=== PATIENT | female | born 1985 | race African-American/Black ===

== ENCOUNTER 2017-07-05 19:07 | Emergency (ER) | payer BC, OTHER ==
--- NOTE | 2017-07-05 20:15 | RAD ---
LEFT FOREARM TWO VIEWS 07/05/17 HISTORY: Fall. Left arm injury. FINDINGS: Radius and ulna are intact. No acute fracture or dislocation are apparent. Ulnar negative variance is noted. IMPRESSION: No acute osseous abnormalities are demonstrated. POS: ANGELITA
--- NOTE | 2017-07-05 20:19 | RAD ---
LUMBAR SPINE THREE VIEWS 07/05/17 HISTORY: Fall. Back injury. FINDINGS: There are five lumbar type vertebrae. Pedicles are intact. Vertebral body heights and alignment are m aintained. No acute fracture or dislocation. IMPRESSION: No acute osseous abnormalities are demonstrated. POS: ALVARO
== END 2017-07-05 21:10 | disposition home or self-care (01) ==
LOC: SCSER 19:07
DX: M54.5 Low back pain (principal); M79.632 Pain in left forearm; F17.210 Nicotine dependence, cigarettes, uncomplicated; Z79.899 Other long term (current) drug therapy; W18.30XA Fall on same level, unspecified, initial encounter; Y92.512 Supermarket, store or market as the place of occurrence of the external cause
CPT/HCPCS: 72100; 99406

== ENCOUNTER 2017-07-06 11:16 | Emergency (ER) | payer MEDICAID, OTHER ==
[2017-07-06 11:48] LABS: Bilirubin Small (Negative); Blood, Urine Large (Negative); Clarity Cloudy (Clear); Glucose, Urine (Dipstick) Negative (Negative); Leukocyte Moderate (Negative); Nitrite Negative (Negative); Protein, Urine (Dipstick) 100 mg/dL (Neg-Trace)
[2017-07-06 11:50] LABS: Specific Gravity, Urine 1.023 (1.002-1.036)
[2017-07-06 12:03] LABS: Bacteria/HPF 2+ HPF (None Seen); Trichomonas/HPF Rare HPF (None Seen)
== END 2017-07-06 12:18 | disposition home or self-care (01) ==
LOC: SCSER 11:16
DX: A59.9 Trichomoniasis, unspecified (principal); N39.0 Urinary tract infection, site not specified; F17.210 Nicotine dependence, cigarettes, uncomplicated
CPT/HCPCS: 81003; 81015; 99406

== ENCOUNTER 2017-10-16 18:57 | Emergency (ER) | payer MEDICAID, OTHER ==
[2017-10-16 19:27] LABS: #Basophils 0.1 thou/uL (0.0-0.2); #Lymphocytes 2.8 thou/uL (1.20-3.40); #Monocytes 0.6 thou/uL (0.11-0.59); #Neutrophils 4.8 thou/uL (1.40-6.50); %Basophils 0.8 % (0.0-1.0); %Eosinophils 0.5 % (0.0-10.0); %Lymphocytes 33.6 % (21.0-51.0); %Monocytes 7.6 % (0.0-10.0); %Neutrophils 57.5 % (42.0-75.0); Hemoglobin 15.9 g/dL (12.0-16.0); Mean Corpuscular HGB CONC 36.3 g/dL (32.0-36.0); Mean Platelet Volume 7.1 fL (7.4-10.4); Platelet Count 268 thou/uL (130-400); RBC Distribution Width 11.3 % (11.5-14.5); Red Blood Cell (RBC) Count 4.99 mill/uL (4.20-5.40); White Blood Cell (WBC) Count 8.4 thou/uL (4.8-10.8)
[2017-10-16 19:32] LABS: Bilirubin Small (Negative); Blood, Urine Moderate (Negative); Glucose, Urine (Dipstick) Negative (Negative); Leukocyte Moderate (Negative); Nitrite Negative (Negative); Protein, Urine (Dipstick) 30 mg/dL (Neg-Trace); Specific Gravity, Urine 1.025 (1.005-1.030)
[2017-10-16 19:41] LABS: Clarity Cloudy (Clear)
[2017-10-16 19:42] LABS: Hyaline Casts/LPF 0-3 HYALINE CAST LPF (0-3 Hyaline)
[2017-10-16 19:43] LABS: Bacteria/HPF 3+ HPF (None Seen)
[2017-10-16 19:44] LABS: Pregnancy Test - Urine (BHCG) Negative (Negative); Pregu Control Background? CLEAR/WHITE (CLR/WHITE); Pregu Control Bar Appear? YES (CONTROL BAR); Specific Gravity 1.025 (1.002-1.036)
[2017-10-16 19:49] LABS: ALT (SGPT) 15 U/L (8-55); AST (SGOT) 12 U/L (5-34); Albumin 5.1 g/dL (3.5-5.0); Alkaline Phosphatase 69 U/L (40-150); Anion Gap 17 mmol/L (10-20); BUN (Urea Nitrogen) 9 mg/dL (7.0-18.7); Bilirubin, Total 0.9 mg/dL (0.2-1.2); Calc. Creatinine Clearance 0 mL/min (70-130); Calcium 10.3 mg/dL (7.8-10.44); Carbon Dioxide 24 mmol/L (22-29); Chloride 101 mmol/L (98-107); Estimated GFR-MDRD 82; Globulin 3.6 g/dL (2.4-3.5); Glucose 102 mg/dL (70-105); Lipase 4 U/L (8-78); Potassium 3.5 mmol/L (3.5-5.1); Protein, Total 8.7 g/dL (6.0-8.3); Sodium 138 mmol/L (136-145)
[2017-10-16] MEDS ORDERED: Ibuprofen 800 MG TAB ONE (20:22)
[2017-10-16] MEDS ORDERED: Ondansetron ODT 4 MG TAB ONE (20:22)
== END 2017-10-16 20:35 | disposition home or self-care (01) ==
LOC: ERS 18:57
DX: N30.00 Acute cystitis without hematuria (principal); I10 Essential (primary) hypertension; F41.9 Anxiety disorder, unspecified; F32.9 Major depressive disorder, single episode, unspecified; F17.210 Nicotine dependence, cigarettes, uncomplicated; Z79.899 Other long term (current) drug therapy
CPT/HCPCS: 36415; 80053; 81003; 81015; 81025; 83690; 85025; 99284; Q0162